=== PATIENT | male | born 1980 | race Two or more races ===

== ENCOUNTER 2020-12-02 14:32 | Emergency (ER) | payer SELFPAY ==
[~2020-12-02] VITALS: Ht 175.3 cm; Wt 81.8 kg
[2020-12-02] MEDS ORDERED: L.AC1CAP6 PO (15:08)
[2020-12-02] MEDS ORDERED: SULF1TAB24 PO (15:08)
[2020-12-02] MEDS ORDERED: CEPH500C PO (15:08)
--- NOTE | 2020-12-02 15:14 | PHYS DOC ---
General Adult EDM: Chief Complaint: INSECT BITE HPI: HPI: 40-year-old male denies any past medical history presents the ED with complaints of painful rash to his right medial ankle stating he has another lesion on his right lower abdomen, unsure if any exposure to MRSA. Believes he might've been bitten my a spinder. Takes no routine prescribed medications. Unsure last tetanus. Review of Systems: Review of Systems: Constitutional: Denies fever or chills. [] Eyes: Denies change in visual acuity. [] HENT: Denies nasal congestion or sore throat. [] Respiratory: Denies cough or shortness of breath. [] Cardiovascular: Denies chest pain or hemoptysis GI: Denies nausea or vomiting, Musculoskeletal: Denies joint swelling or increased warmth Integument: Denies desquamation or blistering lesions Neurologic: Denies headache, focal weakness or sensory changes. [] Lymphatic: Denies swollen glands. [] Psychiatric: Denies depression or anxiety. [] Heart Score: C/O Chest Pain: No Risk Factors: Risk Factors: DM, Current or recent (<one month) smoker, HTN, HLP, family history of CAD, obesity. Risk Scores: Score 0 - 3: 2.5% MACE over next 6 weeks - Discharge Home Score 4 - 6: 20.3% MACE over next 6 weeks - Admit for Clinical Observation Score 7 - 10: 72.7% MACE over next 6 weeks - Early Invasive Strategies Allergies: Allergies: Allergies Coded Allergies Type Severity Reaction Last Updated Verified No Known Drug Allergies 12/02/20 No Physical Exam: PE: Constitutional: Well developed, well nourished, no acute distress, non-toxic appearance. HENT: Normocephalic, atraumatic, Eyes: EOMI, conjunctiva normal, no discharge. Neck: Normal range of motion, supple, Cardiovascular: S1/2 present, regular rhythm Lungs & Thorax: Speaking in full sentences, bilateral equal chest rise, no tachypnea or increased work of breathing Abdomen: soft, no tenderness, rlq region of scab/induration approximately 3 x 2 cm, no underlying fluctuance or erythema Skin: Warm, dry, 5x5 cm area of erythema and increased warmth over the distal medial leg just above ankle joint with apical scab/minimal purulence surrounding scab-with underlying induration /no underlying fluctuation, no subcutaneous emphysema, Extremities:no cyanosis, no lower extremity edema, no pain with passive range of motion of the ankle joint, is able to bear weight Neurologic: Alert and oriented X 3, normal motor function, normal sensory function, no focal deficits noted. [] Psychologic: Affect normal, judgement normal, mood normal. [] EKG: EKG: [] Radiology/Procedures: Radiology/Procedures: [] Course & Med Decision Making: Course & Med Decision Making Pertinent Labs and Imaging studies reviewed. (See chart for details) Concern for cellulitis over medial right distal leg with minimal purulence apex -appears to have drained and scabbed over. Similar scab over right lower abdomen with no associated fluctuance. No drainable fluid collection. Will treat for MRSA with wound check in 48 hours. Will discharge home with strict ED return precautions were given for joint pain, fever, worsening rash or neurologic deficits. Encouraged urgent outpatient follow-up with PMD and wound care in 2 to 3 days for re-evaluation. Life-threatening processes were considered but are low suspicion at this time, given history, physical exam and ED workup. Pt was educated on all prescription medications and adverse effects. All patient's questions were answered and pt was stable at time of discharge. Life/limb-threatening differential includes but is not limited to, life/limb- threatening differential includes but is not limited to, trauma (fracture, dislocation, laceration, compartment syndrome, tendon or ligament injury), neurovascular injury, infection (osteomyelitis, abscess, cellulitis, septic arthritis, necrotizing fasciitis), deep vein thrombosis, renal/cardiac/liver disease, medication adverse effect, lymphedema/anasarca, vascular insufficiency or malignancy, I spoken with the patient and her caregivers. I explained the patient's condition, diagnoses and treatment plan based on the information available to me at this time. I have answered the patient and her caregiver's questions and addressed any concerns. The patient and her caregivers have a good understanding of patient's diagnosis, condition and treatment plan as can be expected at this point. Vital signs have been stable. Patient's condition is stable and appropriate for discharge from the emergency department. Patient will pursue further outpatient evaluation with primary care physician or other designated or consulting physician as outlined in the discharge instructions. The patient and/or caregivers are agreeable to this plan of care and follow-up instructions have been explained in detail. The patient and/or caregivers have received these instructions in written form and have expressed an understanding of the discharge instructions. The patient and/or caregivers are aware that any significant change of condition or worsening of symptoms should prompt immediate return to this or the closest emergency department or call to 911. Dragon Disclaimer: Dragon Disclaimer: This electronic medical record was generated, in whole or in part, using a voice recognition dictation system. Departure Departure Impression: Primary Impression: Cellulitis of leg, right Additional Impression: Need for Tdap vaccination Disposition: HOME / SELF CARE / HOMELESS Condition: STABLE Referrals: NO PCP (PCP) Zuleika un seguimiento con chauhan mdico de atencin primaria en 2-3 lopez para revisar la herida OR FOLLOW UP WITH FAMILY MEDICINE: [address] [facility], [address] [place] [address] Patient Instructions: Cellulitis, VIS, Tetanus, Diphtheria (Td); Tetanus, Diphtheria, Pertussis (Tdap) - [facility] Additional Instructions: FOLLOW UP WITH WOUND CARE: para tratamiento definitivo, revisin de heridas en 2 lopez con el proveedor [facility] [address], [address] [place] [address] INSTRUCCIONES GENERALES DE LILY DEL DEPARTAMENTO DE EMERGENCIAS Ray por venir al Departamento de Emergencias (ED) del [facility] hoguzman y confiando en nosotros con chauhan cuidado. Confiamos que haya tenido tera experiencia positiva en nuestra Emergencia Departamento. Si desea hablar con la gerencia del departamento, puede llamar al Director al [phone]. HAYLEY INSTRUCCIONES DE SEGUIMIENTO SON LAS SIGUIENTES: 1. Tiene un mdico privado? Si no tiene un mdico privado, solicite un lista de recursos de mdicos o clnicas que pueden ayudarlo con la atencin de seguimiento. 2. El Physicain de Emergencias esqueda interpretado hayley radiografas. El especialista en kym X tambin revselos. Si hay un cambio en los resultados, se le notificar en 48 horas cuando en todo posible. 3. Se esqueda realizado tera prueba de laboratorio o un cultivo, se revisarn hayley resultados y se le notificado si necesita un cambio de tratamiento. INSTRUCCIONES E INFORMACIN ADICIONALES: 1. Chauhan atencin hoy esqueda sido supervisada por un mdico especialmente capacitado en emergencias. cuidado. Muchos problemas requieren ms de tera evaluacin para un diagnstico completo y tratamiento. Le recomendamos que programe chauhan abbi de seguimiento segn lo recomendado para garantizar un tratamiento completo de chauhan enfermedad o lesin. Si no puede obtener un seguimiento cuidado y contina teniendo un problema, o si chauhan condicin empeora, le recomendamos que Regrese al servicio de urgencias. 2. No podemos determinar con seguridad chauhan condicin por telfono ni podemos jaki consejos mdicos slidos por telfono. Por estas razones de seguridad, si llama al mdico consejo, le pediremos que acuda al servicio de urgencias para tera evaluacin adicional. 3. Si tiene alguna pregunta con respecto a estas instrucciones de lily, llame al servicio de urgencias al . INFORMACIN DE SEGURIDAD: En makayla de la seguridad, el bienestar y la prevencin de lesiones; te animamos a que uses tu cinturn de seguridad, si fuma; bastante fumador, y alentamos a la gaby a usar un ayleen protector para andar en bicicleta y otros eventos deportivos que presentan un mayor riesgo de lesiones en la annie. SI HAYLEY SNTOMAS EMPEORAN O SE DESARROLLAN NUEVOS SNTOMAS, O TIENE PREOCUPACIONES ACERCA DE CHAUHAN CONDICIN; O SI CHAUHAN CONDICION EMPLEA MIENTRAS ESPERA CHAUHAN ABBI DE SEGUIMIENTO; YA SEA COMUNQUESE CON CHAUHAN MDICO DE CUIDADO PRIMARIO, EL MDICO CUYO NOMBRE Y NMERO LE DIERON, O REGRESE INMEDIATAMENTE AL ED. Scripts L.acidoph & Paracasei,B.lactis (Probiotic) 1 Each Capsule 1 EACH PO DAILY for 14 Days, #14 CAP Prov: JEAN BURDICK DO 12/02/20 Sulfamethoxazole/Trimethoprim (BACTRIM DS TABLET) 1 Each Tablet 1 TAB PO BID for infection for 14 Days, #28 TAB Prov: JEAN BURDICK DO 12/02/20 Cephalexin (CEPHALEXIN) 500 Mg Capsule 1 CAP PO QID for 14 Days, #56 CAP Prov: JEAN BURDICK DO 12/02/20 JEAN BURDICK DO Dec 02, 2020 15:14
[2020-12-02] MEDS ORDERED: DIPH,PERTUSS(ACELL),TET VAC/PF 0.5 ML SYRINGE. VAX IM ONE (15:15)
[2020-12-02 16:04] VITALS: BP 139/84
== END 2020-12-02 16:15 | disposition home or self-care (01) ==
LOC: ER 14:32
DX: L03.115 Cellulitis of right lower limb (principal)
CPT/HCPCS: 90471; 90715; 99283-25